=== PATIENT | female | born 1945 | race Caucasian/White ===

== ENCOUNTER → 2024-02-17 15:27 | Outpatient (REF) | payer MEDICARE, SELFPAY ==
[2024-02-19 12:18] LABS: Intact PTH 99.7 pg/ml (13.6-85.8)
[2024-02-19 12:20] LABS: CTx 25 pg/mL
== END ==
LOC: WDC 15:27
PROVIDERS: ATTENDING PHYSICIAN Family Medicine; OTHER PHYSICIAN Internal Medicine Rheumatology
DX: Z12.31 Encounter for screening mammogram for malignant neoplasm of breast (principal); E55.9 Vitamin D deficiency, unspecified; M81.0 Age-related osteoporosis without current pathological fracture; Z51.81 Encounter for therapeutic drug level monitoring
CPT/HCPCS: 36415; 77063; 77067; 82306; 82523; 83970

== ENCOUNTER → 2024-03-11 10:44 | Outpatient (REF) | payer MEDICARE, SELFPAY ==
[2024-03-11 11:52] LABS: % Basophils 0.6 % (0-2); % Eosinophils 2.2 % (0-6); % Immature Granulocytes 0.4 % (0-0.5); % Lymphocytes 15.1 % (20.5-51.1); % Neutrophils 73.7 % (42.2-75.2); Absolute Eosinophils 0.1 10^3/uL (0-0.7); Absolute Lymphocytes 0.8 10^3/uL (1.2-3.4); Absolute Monocytes 0.4 10^3/uL (0.1-0.6); Hematocrit 39.5 % (37.0-47.0); Hemoglobin 13.2 g/dL (12.0-16.0); Mean Corp Hgb Conc. 33.4 g/dL (33.0-37.0); Mean Corpuscular Hgb 31.4 pg (27.0-31.0); Mean Corpuscular Volume 93.8 fL (81.0-99.0); Mean Platelet Volume 10.5 fL (7.4-10.4); Nucleated Red Blood Cells % 0 %; Platelet Count 204 10^3/uL (130-400); Red Blood Cell Count 4.21 10^6/uL (4.20-5.40); Red Cell Dist. Width 13.7 % (11.5-14.5); White Blood Cell Count 5.4 10^3/uL (4.8-10.8)
[2024-03-11 12:17] LABS: ALT (SGPT) 17 U/L (0-35); AST (SGOT) 26 U/L (14-36); Albumin 4.1 g/dl (3.5-5.0); Alkaline Phosphatase 76 U/L (38-126); Blood Urea Nitrogen 13 mg/dl (7-17); Calcium 9.6 mg/dl (8.4-10.2); Carbon Dioxide 30 mmol/L (22-30); Chloride 102 mmol/L (98-107); Glucose 92 mg/dl (70-99); HDL Cholesterol 79 mg/dl; LDL Cholesterol, Calculated 35 mg/dl; Sodium 137 mmol/L (135-145); Total Bilirubin 0.8 mg/dl (0.2-1.3); Total Cholesterol 127 mg/dl (50-199); Total Protein 6.7 g/dl (6.3-8.2); Triglyceride 65 mg/dl (10-149); Very Low Density Lipoprotein 13 mg/dl (0-30); eGFR > 60.00
[2024-03-11 12:53] LABS: TSH Reflex To Free T4 2.11 uIU/ml (0.47-4.68)
== END ==
LOC: RCS 10:44
PROVIDERS: ATTENDING PHYSICIAN Internal Medicine Rheumatology; FAMILY PHYSICIAN Family Medicine
DX: I10 Essential (primary) hypertension (principal); R01.1 Cardiac murmur, unspecified; E78.00 Pure hypercholesterolemia, unspecified; E34.9 Endocrine disorder, unspecified; Z00.00 Encounter for general adult medical examination without abnormal findings; Z13.220 Encounter for screening for lipoid disorders
CPT/HCPCS: 36415; 80053; 80061; 84443; 85025; 93306

== ENCOUNTER → 2024-03-23 13:15 | Outpatient (REF) | payer MEDICARE, SELFPAY ==
[2024-03-23 15:16] LABS: NT-proBNP 199 pg/ml
== END ==
LOC: REG 13:15
PROVIDERS: ATTENDING PHYSICIAN Internal Medicine Critical Care Medicine; FAMILY PHYSICIAN Family Medicine
DX: R06.02 Shortness of breath (principal); R06.01 Orthopnea; R05.3 Chronic cough
CPT/HCPCS: 36415; 83880

== ENCOUNTER 2025-05-12 14:01 | Emergency (ER) | payer MEDICARE, SELFPAY ==
[2025-05-12 14:05] VITALS: BP 146/84
--- NOTE | 2025-05-12 16:33 | ED.GENMED ---
History of Present Illness
General
Chief Complaint: Urinary Symptoms
Source: patient
Exam Limitations: none
Time Seen by Provider: 05/12/25 15:31
Nursing documentation reviewed up to this point in time: agreed with
History of Present Illness
History of Present Illness:
Patient is a 80-year-old female status post cervical fracture, quadriplegia with known suprapubic tube presents to the ER for evaluation. Two nights ago she noted that her tube is leaking. Her underwear was wet. Today she noticed that the urine
in the bag was blood-tinged. She denies any recent illness fever chills nausea vomiting back pain. She is not on blood thinners. This is managed at [facility] where it was originally placed. It was last changed 3 weeks ago.
Past History
Past History
ED Past Medical History: Hypothyroidism
Social History
Tobacco: Non-smoker
Alcohol: None
Personal: Single
Living: with family
Employment: Employed
Family History
Family History: Negative Diabetes, Hypertension or CAD
Phy Exam
General Physical Exam
General Presentation: no apparent distress
General age: appears stated age
General Skin: warm and dry
General Habitus: elderly
General Mental: alert
General Hydration: appears well hydrated
Gastrointestinal Exam
Gastrointestinal Exam: non tender, soft and other (+ suprapubic tube in place )
Neurological Exam
Neurological Exam: alert and oriented x3
Musculoskeletal Exam
Musculoskeletal Exam: full ROM
Skin Exam
Skin Exam: normal color and warm/dry
Psychiatric Exam
Psychiatric Exam: normal mood/affect
Course
Orders/Labs/Results
Orders:
Orders
05/12/25 16:53
IV Insert/Care/Rem.- Treatment PRN
05/12/25 16:55
CT Abd/pel Without Iv Or Oral Urgent
Comment:
Reason For Exam: blood tinged urine suprapubic tube leaking
05/12/25 17:01
Complete Blood Count/With Diff Urgent
Comprehensive Metabolic Panel Urgent
05/12/25 17:15
Urinalysis Reflex To Culture Urgent
Date Specimen was Collected: 05/12/25
Time Specimen was Collected: 17:14
Urine Microscopic Reflex Cult Urgent
Urine Culture Urgent
MANJU Source: U
Specimen Description:
Date Specimen was Collected: 05/12/25
Time Specimen was Collected: 17:14
05/12/25 19:42
Amoxicillin 875 mg/Clav 125 mg [Augmentin 875 mg/125 mg] 1 tablet PO NOW STA
Abnormal Lab Results
05/12/25 05/12/25
17:01 17:15
MCHC 32.9 L g/dL
(33.0-37.0)
RDW 15.1 H %
(11.5-14.5)
MPV 10.9 H fL
(7.4-10.4)
Absolute Monos (auto) 0.7 H 10^3/uL
(0.1-0.6)
Monocytes % 10.6 H %
(1.7-9.3)
Creatinine 0.4 L mg/dL
(0.6-1.0)
Ur Occult Blood Reflex 4+ A
(Negative)
Urine Nitrite (Reflex) Positive A
(Negative)
Leukocyte Esterase Rfl 3+ A
(Negative)
Urine RBC 30-40 A /HPF
(0-2)
Urine WBC (Reflex) 60-70 A /HPF
(0-5)
Urine Bacteria (Reflex) Few A
(Negative)
Urine Albumin (Reflex) 3+ A
(Neg - Trace)
05/12/25 17:01
05/12/25 17:01
Vital Signs
Initial and Last Documented VS:
Initial Vital Signs
Temp Pulse Resp BP Pulse Ox
98.0 F 65 16 146/84 98
05/12/25 14:05 05/12/25 14:05 05/12/25 14:05 05/12/25 14:05 05/12/25 14:05
Last Documented Vital Signs
Temp Pulse Resp BP Pulse Ox
98.0 F 68 16 139/78 97
05/12/25 14:05 05/12/25 19:41 05/12/25 17:15 05/12/25 19:39 05/12/25 19:40
Overhead Crane Inspector consulted with Physician
Overhead Crane Inspector consulted with physician?: Yes
Name of Physician Consulted: Margarito
MDM/Problems Addressed
MDM/Problems Addressed:
As documented patient is a 80-year-old female with history of cervical spine injury, quadriplegia presents to the ER. Patient has a known chronic suprapubic tube and complains of leaking and also blood in her bag. Patient arrives a picture sheet
urine appears blood-tinged in the bag from her picture however presently patient's urine seems more ice tea colored. She denies any fever or chills. She is nontoxic. Abdomen soft nontender her white count is normal she is afebrile her renal
function is normal. CAT scan shows that the suprapubic tube appears to be insufflated within the urinary bladder lumen there is no evidence of nephroureterolithiasis.
Urine does appear infected. Case reviewed with Dr. Pimentel will DC on Augmentin to treat for complicated UTI. Patient was very well-appearing.
She does appear to have some leakage of urine discussed close the patient felt urology.
After discussion throughout the ER stay daughter realized the patient has been swimming in the pool for therapy with the expose I did recommend she hold off until cleared by urology
Chronic conditions affecting care:
Paraplegia / suprapubic tube
*Radiology
Radiology exam reviewed: radiology read reviewed
*Pulse Oximetry
SaO2: 98
Oxygen Mode of Delivery: Room air
Patient hypoxic: no
*Critical Care Note
Total Time (30-74mins, 75-104mins- exclusive of procedures): Not Applicable
ED Attending Note
-
Portions of this chart may have been created with voice recognition software.� Occasional wrong word or��sound alike� substitutions may have occurred due to the inherent limitations of voice recognition software.
Discharge Plan
Departure
Patient Disposition: Home (Routine Discharge)
Date of Disposition: 05/12/25
Time of Disposition: 20:01
Patient with high blood pressure during this ER visit?: Yes
Condition: Fair
Covid-19: Not Applicable
Discharge Problem:
Acute UTI
Instructions: Urinary Tract Infection, Adult (DC), BLOOD PRESSURE
Prescriptions:
New
amoxicillin-pot clavulanate 875-125 mg tablet
1 tab PO BID Qty: 20 0RF
No Action
loperamide 2 MG capsule
2 mg PO Q4HPRN PRN (Reason: diarrhea)
trazodone 50 MG tablet
100 mg PO HS PRN (Reason: sleep)
cyanocobalamin (vitamin B-12) 1,000 MCG tablet
1,000 mcg PO DAILY
levothyroxine 75 MCG tablet
75 mcg PO DAILY
denosumab [Prolia] 60 MG/ML syringe
60 mg SQ [id number]
calcium carbonate 500 MG tablet
1,000 mg PO DAILY
ascorbic acid (vitamin C) [Vitamin C] 500 MG tablet
1,000 mg PO DAILY
cholecalciferol (vitamin D3) 1,000 UNITS tablet
1,000 units PO DAILY
Biotin
1 tab PO DAILY
mupirocin 1 APPLIC ointment
1 applic topical BID Qty: 1 0RF
Patient Comments:
for 3 days preop, last dose
pregabalin 75 MG capsule
75 mg PO BID Qty: 28 0RF
Rx Instructions:
POST-OP USE ONLY
meloxicam 15 MG tablet
15 mg PO DAILY Qty: 14 0RF
Rx Instructions:
WITH FOOD
POST-OP USE ONLY
oxycodone 5 MG tablet
5 mg PO Q6HPRN PRN (Reason: moderate-severe pain) Qty: 30 0RF
Rx Instructions:
1 tab moderate pain or 2 if pain severe
Dx total joint replacement
ongoing therapy
Aspirin 325 MG Tablet
325 mg PO DAILY Qty: 28 0RF
Rx Instructions:
Take daily x4 weeks for blood clot prevention; then resume Aspirin 81 mg daily.
docusate sodium 100 MG capsule
100 mg PO BID Qty: 30 0RF
sennosides [senna] 8.6 MG capsule
8.6 mg PO BIDPRN PRN (Reason: constipation) Qty: 30 0RF
Rx Instructions:
Take as needed for constipation unrelieved by Colace.
acetaminophen 500 MG tablet
1,000 mg PO Q6H Qty: 0 0RF
Rx Instructions:
Do not exceed >4000 mg daily.
methylprednisolone [Methylpred DP] 4 mg tablets,dose pack
4 mg PO DAILY Qty: 21 0RF
famotidine [Pepcid] 40 mg tablet
40 mg PO DAILY Qty: 14 0RF
Referrals:
Xavier Gan Jr., DO [Family Provider, Internal Medicine]
Activity Restrictions/Additional Instructions:
As discussed start Augmentin twice a day for the next 10 days. Follow-up closely with urology ;call Wednesday to make an appointment in the next several days. Return if any worsening of symptoms including nausea vomiting back pain fever chills.
No pool therapy until you are cleared by urology and symptoms are resolved.
Interventions
Interventions:
*Risk Screen - Suicide Last Done: 05/12/25 14:05
*General Assessment Last Done: 05/12/25 17:02
*Neglect/Abuse Screening Last Done: 05/12/25 14:05
*ED- Fall Risk Assessment Last Done: 05/12/25 17:02
*ED COVID-19 Vaccine History Last Done: 05/12/25 17:02
ED-Female Genitourinary Assessment Last Done: 05/12/25 17:02
Discharge Date and Time
Print Language: ARMENIAN
[2025-05-12 17:14] LABS: Hematocrit 41.0 % (37.0-47.0); Hemoglobin 13.5 g/dL (12.0-16.0); Mean Corp Hgb Conc. 32.9 g/dL (33.0-37.0); Mean Corpuscular Volume 91.9 fL (81.0-99.0); Nucleated Red Blood Cells % 0 %; Platelet Count 205 10^3/uL (130-400); Red Cell Dist. Width 15.1 % (11.5-14.5)
[2025-05-12 17:15] VITALS: BP 151/94
[2025-05-12 17:32] LABS: ALT (SGPT) 18 U/L (0-35); AST (SGOT) 24 U/L (14-36); Albumin 4.2 g/dl (3.5-5.0); Alkaline Phosphatase 75 U/L (38-126); Blood Urea Nitrogen 16 mg/dl (7-17); Calcium 8.9 mg/dl (8.4-10.2); Carbon Dioxide 27 mmol/L (22-30); Chloride 105 mmol/L (98-107); Glucose 87 mg/dl (70-99); Potassium 4.4 mmol/L (3.5-5.1); Sodium 137 mmol/L (135-145); Total Protein 7.1 g/dl (6.3-8.2); eGFR > 60.00
[2025-05-12 17:36] LABS: Urine Character Cloudy (Clear)
[2025-05-12 17:46] LABS: Urine Red Blood Cell 30-40 /HPF (0-2); Urine White Cell 60-70 /HPF (0-5)
[2025-05-12 19:39] VITALS: BP 139/78
[2025-05-12] MEDS: AUGMENTIN 875 MG/125 MG 1 TABLET PO (19:55)
== END 2025-05-12 20:35 | disposition home or self-care (01) ==
LOC: EMR 14:01
PROVIDERS: Nurse Practitioner; EMERGENCY PHYSICIAN Emergency Medicine; FAMILY PHYSICIAN Family Medicine
DX: N39.0 Urinary tract infection, site not specified (principal); R31.0 Gross hematuria; E03.9 Hypothyroidism, unspecified; G82.50 Quadriplegia, unspecified; Z93.59 Other cystostomy status
CPT/HCPCS: 99284; 74176; 80053; 81003; 81015; 85025; 87086